=== PATIENT | male | born 1950 | race Caucasian/White ===

== ENCOUNTER → 2021-06-21 | Outpatient (CLI) | payer OTHER ==
[~2021-06-21] MED LIST: ASA81BEC PO; CULTURELLE KID1 EAC1 PO; FLOMAX0.4 MG PER TUBE; LEVOTHYROXINE75 MC1 PER TUBE; LIPITOR 10 MG10 M1 PO; LOPRESSOR50 MG PER TUBE; NARDIL15 MG PER TUBE; NOXIFOL-D32500 UNIT PER TUBE; [UNRECOGNIZED DRUG - OTHER]
[2021-06-21 08:15] VITALS: BP 102/53
[2021-06-21 09:52] VITALS: BP 110/60; BP 111/73; BP 118/70
--- NOTE | 2021-06-21 16:23 | NUR ---
ARRIVED IN WHEELCHAIR WITH FOR BLOOD TRANSFUSION. TYPE AND CROSS DRAWN WITH IV START. TEACHING DONE ON BLOOD TRANSFUSION AND S&S OF A REACTION. HANDOUTS GIVEN. VERBALIZED UNDERSTANDING OF ALL TEACHING DONE. PREMEDICATED ORDERED. PATIENT TOOK ORAL MEDS. HAS A GTUBE IN PLACE BUT IS NOT USING AT THIS TIME. TAKING ORAL MEDS AND FOOD. STATES HIS STRENGTH IS INCREASING. STATES RADIATION IS TO START IN JUNE SOMETIME. SEES A DENTIST ON THE OF THIS MONTH TO SEE ABOUT TEETH EXTRACTION. ALSO SEEING AN ONCOLOGIST June REGARDING LOW HGB. PATIENT HAD 3 UNITS OF BLOOD EARLY MAY. PATIENT REPORTS NO ACTIVE BLEEDING. TOLERATED INFUSION WITHOUT ADVERSE REACTION. DC TO HOME WITH .
== END ==
LOC: OPONC 07:47
PROVIDERS: ATTEND Radiology Radiation Oncology
DX: C06.9 Malignant neoplasm of mouth, unspecified (principal); D64.9 Anemia, unspecified; R53.1 Weakness
CPT/HCPCS: 91030